=== PATIENT | male | born 1980 | race Caucasian/White ===

== ENCOUNTER → 2024-02-09 18:42 | Outpatient (REF) | payer OTHER, SELFPAY | LOC: MRI 18:42 | PROVIDERS: ATTENDING PHYSICIAN Electrodiagnostic Medicine | DX: G35 Multiple sclerosis (principal) | CPT/HCPCS: 70553; 72156; A9575 ==

== ENCOUNTER → 2024-02-10 17:58 | Outpatient (REF) | payer OTHER, SELFPAY | LOC: MRI 17:58 | PROVIDERS: ATTENDING PHYSICIAN Electrodiagnostic Medicine; FAMILY PHYSICIAN Nurse Practitioner | DX: G35 Multiple sclerosis (principal) | CPT/HCPCS: 72157; A9575 ==

== ENCOUNTER 2024-05-15 11:36 | Emergency (ER) | payer OTHER, SELFPAY ==
--- NOTE | 2024-05-15 11:40 | ED.GENMED ---
ED Provider Triage
<Lisbet Perez PA-C - Last Filed: 05/15/24 11:43>
-
Patient seen by provider in Triage?: Seen in Triage
Attestation: A medical screening examination has been initiated by a qualified medical provider. Based on the assessment performed at this time, it has been determined that an emergent medical condition may exist and the patient has been informed
that further medical evaluation and possible additional diagnostic testing may be needed.
HPI: 43yoM here with SOB. Sent over by PCP for oxygen saturation of 88%. Having 1 week of cough and congestion. Child is sick with bronchitis. Hx of MS and asthma. Smokes 1ppd.
GENERAL: Alert , in no apparent distress
EYE: No visual abnormalities.
NECK: Trachea midline
ENT: No visible abnormalities.
LUNGS: No acute respiratory distress
NEUROLOGICAL: Alert and oriented
SKIN: Skin intact. No visible changes.
MUSCULOSKELETAL: Moving extremities normally
PSYCH: Normal and appropriate interaction.
This is a medical evaluation conducted in person to initiate diagnostic evaluation and provide initial therapeutics. Please see further documentation by the treating clinician.
Oxygen saturation 96-97% in triage. Cardiac labs, EKG, COVID/flu swab, and CXR ordered.
History of Present Illness
<Lisbet Perez PA-C - Last Filed: 05/15/24 11:43>
General
Chief Complaint: Cold/Flu/URI Symptoms
Time Seen by Provider: 05/15/24 12:15
<Alma Garcia PA-C - Last Filed: 05/16/24 15:27>
General
Source: patient
Exam Limitations: none
Nursing documentation reviewed up to this point in time: agreed with
History of Present Illness
History of Present Illness:
Patient is a 43 year old male with hx MS presenting to the emergency department from primary care's office for evaluation of hypoxia. Patient reports a few weeks of persistent sore throat and congestion. He does note very mild shortness of breath,
as well. Patient was seen at primary care today where he was found to have a pulse ox of 88% on room air and sent to the emergency department for chest x-ray. Patient denies any fever, chills, headache. Patient denies any cough or chest pain.
Patient states his sore throat has been the most bothersome to him and he feels as if he is having an episode of thrush for which he has had in the past.
Of note�patient was hospitalized with COVID early March for which she has mostly resolved.
Daughter is sick at home with bronchitis.
Past History
<Lisbet Perez PA-C - Last Filed: 05/15/24 11:43>
Social History
Tobacco: Smoker
Review of Systems
<Alma Garcia PA-C - Last Filed: 05/16/24 15:27>
Review of Systems
Allergies reviewed?: Yes
All Other Systems: ROS reviewed and negative except as documented in HPI and ROS
Phy Exam
<Alma Garcia PA-C - Last Filed: 05/16/24 15:27>
Physical Exam
Physical Exam:
Vitals: Patient's vital signs are stable. Afebrile.
General: Patient is well appearing, no acute distress
Skin: Warm and dry, no rashes or lesions
Head: Normocephalic, atraumatic
Eyes: Sclera nonicteric. EOMs intact. No nystagmus.
Throat: Scattered white patches on tongue with few in posterior pharynx. Posterior pharynx mildly erythematous without any significant tonsillar edema or exudates. Uvula is midline. Protecting airway. No trismus
Neck: Normal ROM, no cervical spine tenderness, no meningismus
Cardiac: Regular rate and rhythm, no murmurs.
Pulm: No respiratory distress. Normal respiratory effort, no wheezes, rales, rhonchi heard on exam. O2 saturation 97 on room air
Abdomen: Abdomen soft. No abdominal tenderness.
Extremities: No evidence of cyanosis or edema. Great distal pulses
Neuro: AAOx3. CN II-XII intact. No focal neurologic deficits. Speech fluid.
Psychiatric: Normal affect.
Sepsis
<Alma Garcia PA-C - Last Filed: 05/16/24 15:27>
Sepsis Screening
Sepsis Assessment: Sepsis Ruled Out
Sepsis Screen
Sepsis Screen: Sepsis Ruled Out
Date: 05/16/24
Time: 15:25
<Owen Holloway DO - Last Filed: 05/15/24 14:13>
Sepsis Screen
Sepsis Screen: Sepsis Ruled Out
Date: 05/15/24
Time: 14:12
Course
<Lisbet Perez PA-C - Last Filed: 05/15/24 11:43>
Orders/Labs/Results
Orders:
Orders
05/15/24 11:42
Electrocardiogram (*1) Urgent
Reason for Study: Shortness of Breath
EKG- Treatment ONCE
CR Chest - 2 Views Urgent
Comment:
Reason For Exam: Cough, SOB
05/15/24 11:53
COVID-19 Antigen Urgent
Source: Nasal Swab
Complete Blood Count/With Diff Urgent
Comprehensive Metabolic Panel Urgent
Monotest Urgent
Comment: ADD ON
Troponin I Urgent
Influenza A+B Rapid Molecular Urgent
JAREK Source: Nasal Swab
Specimen Description:
05/15/24 13:06
Add On- LAB Urgent
Tests Added?: mono test
05/15/24 13:14
Rapid Strep Group A Urgent
JAREK Source: T
Specimen Description:
Date Specimen was Collected: 05/15/24
Time Specimen was Collected: 13:09
Comment: Add on by Alma Garcia
Throat Culture [Throat Culture, Comprehensive] Urgent
JAREK Source: Throat/Pharynx
Specimen Description:
Date Specimen was Collected: 05/15/24
Time Specimen was Collected: 13:09
05/15/24 13:27
Add On- LAB Urgent
Tests Added?: rapid strep
05/15/24 13:[address]ck [address] [CT Neck With Iv Contrast] Urgent
Comment:
Reason For Exam: Sore throat, left neck tenderness, leukocytosis
05/15/24 14:26
Nicotine [Nicoderm Transdermal] 14 mg TRANSDERM NOW STA
05/15/24 14:56
Ketorolac [Toradol] 15 mg IV NOW STA
Abnormal Lab Results
05/15/24
11:53
WBC 17.4 H 10^3/uL
(4.8-10.8)
RBC 4.25 L 10^6/uL
(4.70-6.10)
Hgb 10.8 L g/dL
(13.0-18.0)
Hct 33.9 L %
(39.0-52.0)
MCV 79.8 L fL
(80.0-94.0)
MCH 25.4 L pg
(27.0-31.0)
MCHC 31.9 L g/dL
(33.0-37.0)
RDW 14.6 H %
(11.5-14.5)
Plt Count 696 H 10^3/uL
(130-400)
Abs Immat Gran (auto) 1.0 H 10^3/uL
(0-0.05)
Absolute Neuts (auto) 13.6 H 10^3/uL
(1.4-6.5)
Absolute Monos (auto) 1.0 H 10^3/uL
(0.1-0.6)
Immature Gran % 5.7 H %
(0-0.5)
Neutrophils % 78.2 H %
(42.2-75.2)
Lymphocytes % 6.7 L %
(20.5-51.1)
Creatinine 0.5 L mg/dL
(0.7-1.3)
Glucose 118 H mg/dl
(70-99)
Albumin 3.4 L g/dl
(3.5-5.0)
05/15/24 11:53
05/15/24 11:53
Vital Signs
Initial and Last Documented VS:
Initial Vital Signs
Temp Pulse Resp BP Pulse Ox
98.3 F 72 22 119/67 97
05/15/24 11:41 05/15/24 11:41 05/15/24 11:41 05/15/24 11:41 05/15/24 11:41
Last Documented Vital Signs
Temp Pulse Resp BP Pulse Ox
98.3 F 87 18 110/97 97
05/15/24 11:41 05/15/24 16:56 05/15/24 16:56 05/15/24 16:56 05/15/24 16:56
<Alma Garcia PA-C - Last Filed: 05/16/24 15:27>
Orders/Labs/Results
Orders:
Orders
05/15/24 11:42
Electrocardiogram (*1) Urgent
Reason for Study: Shortness of Breath
EKG- Treatment ONCE
CR Chest - 2 Views Urgent
Comment:
Reason For Exam: Cough, SOB
05/15/24 11:53
COVID-19 Antigen Urgent
Source: Nasal Swab
Complete Blood Count/With Diff Urgent
Comprehensive Metabolic Panel Urgent
Monotest Urgent
Comment: ADD ON
Troponin I Urgent
Influenza A+B Rapid Molecular Urgent
JAREK Source: Nasal Swab
Specimen Description:
05/15/24 13:06
Add On- LAB Urgent
Tests Added?: mono test
05/15/24 13:14
Rapid Strep Group A Urgent
JAREK Source: T
Specimen Description:
Date Specimen was Collected: 05/15/24
Time Specimen was Collected: 13:09
Comment: Add on by Alma Garcia
Throat Culture [Throat Culture, Comprehensive] Urgent
JAREK Source: Throat/Pharynx
Specimen Description:
Date Specimen was Collected: 05/15/24
Time Specimen was Collected: 13:09
05/15/24 13:27
Add On- LAB Urgent
Tests Added?: rapid strep
05/15/24 13:[address]ck [address] [CT Neck With Iv Contrast] Urgent
Comment:
Reason For Exam: Sore throat, left neck tenderness, leukocytosis
05/15/24 14:26
Nicotine [Nicoderm Transdermal] 14 mg TRANSDERM NOW STA
05/15/24 14:56
Ketorolac [Toradol] 15 mg IV NOW STA
Abnormal Lab Results
05/15/24
11:53
WBC 17.4 H 10^3/uL
(4.8-10.8)
RBC 4.25 L 10^6/uL
(4.70-6.10)
Hgb 10.8 L g/dL
(13.0-18.0)
Hct 33.9 L %
(39.0-52.0)
MCV 79.8 L fL
(80.0-94.0)
MCH 25.4 L pg
(27.0-31.0)
MCHC 31.9 L g/dL
(33.0-37.0)
RDW 14.6 H %
(11.5-14.5)
Plt Count 696 H 10^3/uL
(130-400)
Abs Immat Gran (auto) 1.0 H 10^3/uL
(0-0.05)
Absolute Neuts (auto) 13.6 H 10^3/uL
(1.4-6.5)
Absolute Monos (auto) 1.0 H 10^3/uL
(0.1-0.6)
Immature Gran % 5.7 H %
(0-0.5)
Neutrophils % 78.2 H %
(42.2-75.2)
Lymphocytes % 6.7 L %
(20.5-51.1)
Creatinine 0.5 L mg/dL
(0.7-1.3)
Glucose 118 H mg/dl
(70-99)
Albumin 3.4 L g/dl
(3.5-5.0)
05/15/24 11:53
05/15/24 11:53
Vital Signs
Initial and Last Documented VS:
Initial Vital Signs
Temp Pulse Resp BP Pulse Ox
98.3 F 72 22 119/67 97
05/15/24 11:41 05/15/24 11:41 05/15/24 11:41 05/15/24 11:41 05/15/24 11:41
Last Documented Vital Signs
Temp Pulse Resp BP Pulse Ox
98.3 F 87 18 110/97 97
05/15/24 11:41 05/15/24 16:56 05/15/24 16:56 05/15/24 16:56 05/15/24 16:56
Dashawnlt;Owen Holloway, DO - Last Filed: 05/15/24 14:13>
Orders/Labs/Results
Orders:
Orders
05/15/24 11:42
Electrocardiogram (*1) Urgent
Reason for Study: Shortness of Breath
EKG- Treatment ONCE
CR Chest - 2 Views Urgent
Comment:
Reason For Exam: Cough, SOB
05/15/24 11:53
COVID-19 Antigen Urgent
Source: Nasal Swab
Complete Blood Count/With Diff Urgent
Comprehensive Metabolic Panel Urgent
Monotest Urgent
Comment: ADD ON
Troponin I Urgent
Influenza A+B Rapid Molecular Urgent
JAREK Source: Nasal Swab
Specimen Description:
05/15/24 13:06
Add On- LAB Urgent
Tests Added?: mono test
05/15/24 13:14
Rapid Strep Group A Urgent
JAREK Source: T
Specimen Description:
Date Specimen was Collected: 05/15/24
Time Specimen was Collected: 13:09
Comment: Add on by Alma Garcia
Throat Culture [Throat Culture, Comprehensive] Urgent
JAREK Source: Throat/Pharynx
Specimen Description:
Date Specimen was Collected: 05/15/24
Time Specimen was Collected: 13:09
05/15/24 13:27
Add On- LAB Urgent
Tests Added?: rapid strep
05/15/24 13:30
Neck w [address] [CT Neck With Iv Contrast] Urgent
Comment:
Reason For Exam: Sore throat, left neck tenderness, leukocytosis
05/15/24 14:26
Nicotine [Nicoderm Transdermal] 14 mg TRANSDERM NOW STA
05/15/24 14:56
Ketorolac [Toradol] 15 mg IV NOW STA
Abnormal Lab Results
05/15/24
11:53
WBC 17.4 H 10^3/uL
(4.8-10.8)
RBC 4.25 L 10^6/uL
(4.70-6.10)
Hgb 10.8 L g/dL
(13.0-18.0)
Hct 33.9 L %
(39.0-52.0)
MCV 79.8 L fL
(80.0-94.0)
MCH 25.4 L pg
(27.0-31.0)
MCHC 31.9 L g/dL
(33.0-37.0)
RDW 14.6 H %
(11.5-14.5)
Plt Count 696 H 10^3/uL
(130-400)
Abs Immat Gran (auto) 1.0 H 10^3/uL
(0-0.05)
Absolute Neuts (auto) 13.6 H 10^3/uL
(1.4-6.5)
Absolute Monos (auto) 1.0 H 10^3/uL
(0.1-0.6)
Immature Gran % 5.7 H %
(0-0.5)
Neutrophils % 78.2 H %
(42.2-75.2)
Lymphocytes % 6.7 L %
(20.5-51.1)
Creatinine 0.5 L mg/dL
(0.7-1.3)
Glucose 118 H mg/dl
(70-99)
Albumin 3.4 L g/dl
(3.5-5.0)
05/15/24 11:53
05/15/24 11:53
Vital Signs
Initial and Last Documented VS:
Initial Vital Signs
Temp Pulse Resp BP Pulse Ox
98.3 F 72 22 119/67 97
05/15/24 11:41 05/15/24 11:41 05/15/24 11:41 05/15/24 11:41 05/15/24 11:41
Last Documented Vital Signs
Temp Pulse Resp BP Pulse Ox
98.3 F 87 18 110/97 97
05/15/24 11:41 05/15/24 16:56 05/15/24 16:56 05/15/24 16:56 05/15/24 16:56
<Alma Garcia PA-C - Last Filed: 05/16/24 15:27>
MDM/Problems Addressed
Differential Diagnosis Includes:
Not limited to: Viral pharyngitis, oral candidiasis, mononucleosis, peritonsillar abscess, viral illness, pneumonia, etc.
MDM/Problems Addressed:
43-year-old male presenting with persistent sore throat and congestion. Patient initially sent by primary care due to hypoxia noted in office this morning although patient is in absolutely no respiratory distress here with oxygen saturation of 97%
on room air throughout duration emergency department. No chest pain or shortness of breath. No fevers, dysphagia, trismus. Vital signs are stable. Patient is afebrile on arrival to emergency department. Exam as above. Posterior pharynx mildly
erythematous without any visible peritonsillar abscess. No tonsillar exudates. Uvula is midline patient is protecting airway. There are few white lesions on tongue and scattered on posterior pharynx suggesting possible oral candidiasis. Labs
were initiated in triage which show a leukocytosis of 17.4. Chemistry unremarkable. Did obtain a chest x-ray which shows no acute findings. Viral swabs negative. [place] negative. Given mild tenderness noted to the neck with persistent sore throat
and associated leukocytosis�a CT of neck was obtained which shows no peritonsillar abscess or deep abscess of neck. Findings likely suggestive of a pharyngitis likely viral in origin. Group A strep rapid was negative. Throat culture was sent.
Patient remained very well-appearing. Suspect likely viral pharyngitis versus oral candidiasis. Given patient is afebrile with negative rapid strep will antibiotics at this time. Will send antifungal lozenges to treat possible oral candidiasis.
Feel patient is stable for discharge with primary care follow-up and close return precautions. Advised to stay well-hydrated, Motrin for pain. Patient seen with attending physician.
Chronic conditions affecting care:
N/A
Acute Exacerbation and/or Progression of Chronic Illness:
N/A
<Alma Garcia PA-C - Last Filed: 05/16/24 15:27>
*Radiology
Radiology exam reviewed: preliminary read by ED provider and radiology read reviewed
*Pulse Oximetry
Patient hypoxic: no
*Critical Care Note
Total Time (30-74mins, 75-104mins- exclusive of procedures): Not Applicable
ED Attending Note
<Lisbet Perez PA-C - Last Filed: 05/15/24 11:43>
-
Portions of this chart may have been created with voice recognition software.� Occasional wrong word or��sound alike� substitutions may have occurred due to the inherent limitations of voice recognition software.
<Owen Holloway DO - Last Filed: 05/15/24 14:13>
ED Attending Note
Patient seen and examined by attending physician: Yes
I performed a history and physical exam of patient and discussed management with resident, I reviewed resident's note and agree with documented findings and plan of care.: Yes
ED Attending Note:
I reviewed and agree with history and treatment plan by Alma Maguire. My exam revealed
Physical Exam
General: no apparent distress, not acutely ill
Neck: supple. no meningeal signs. normal posterior pharynx, left-sided cervical lymphadenopathy and tenderness
Heart: s1/s2 regular rate and rhythm, no murmur. equal radial
pulses.
HEENT: Pupils equal round reactive to light, EOMI
Lungs: no acute respiratory distress. clear bilaterally
Abdomen: normal bowel sounds. not tender. no CVAT
Neuro: alert and oriented. no focal neurological deficits cranial nerves II through XII intact
Skin: no rash
Psychiatric: well kept. interactive and cooperative
Extremities: no edema. no calf tenderness. negative homans. good distal pulses
Discharge Plan
Departure
Patient Disposition: Home (Routine Discharge)
Date of Disposition: 05/15/24
Time of Disposition: 16:47
Patient with high blood pressure during this ER visit?: No
Condition: Good
Covid-19: Negative COVID-19
Discharge Problem:
Pharyngitis, Candidiasis of mouth
Instructions: Thrush in adults, Sore Throat, Adult ED
Prescriptions:
New
clotrimazole 10 mg ana cristina
See Rx Instructions .ROUTE .COMPLEX Qty: 50 0RF
Rx Instructions:
10 mg to affected mucosal area five times per day for 10 days
No Action
hydrocodone-acetaminophen 5 MG/500 MG tablet
1 - 2 tab PO .Q4-6HPRN PRN (Reason: PAIN) Qty: 20 0RF
Referrals:
Devin Vieira CRNP [Family Provider] - Follow up in 2-3 days
Activity Restrictions/Additional Instructions:
Return to the emergency department with any fevers, chills, shortness of breath, worsening in sore throat, difficulty swallowing, neck pain, worsening current symptoms, or any other concerns
-As discussed your rapid strep test was negative today. We will contact you if the throat culture is positive.
-A prescription for lozenges resent to your pharmacy. You can use these 5 times a day for the next 10 days.
-It is important to stay well-hydrated. Take Tylenol/Motrin as needed at home for pain.
-As discussed�you must follow-up with your primary care doctor in a few days to ensure the symptoms are improving/for further evaluation
Monitor your symptoms closely and return to the emergency department any acute worsening/new symptoms or signs of worsening infection
Interventions
Interventions:
*Risk Screen - Suicide Last Done: 05/15/24 13:41
*Neglect/Abuse Screening Last Done: 05/15/24 13:41
ED- Fall Risk Assessment Last Done: 05/15/24 13:39
*ED COVID-19 Vaccine History Last Done: 05/15/24 11:41
*Nursing Disposition Last Done: 05/15/24 16:57
ED- Pulmonary Assessment Last Done: 05/15/24 13:39
Discharge Date and Time
Discharge Date/Time: 05/15/24 16:58
Print Language: [id number]
[2024-05-15 11:41] VITALS: BP 119/67
[2024-05-15 12:22] LABS: % Basophils 0.5 % (0-2); % Immature Granulocytes 5.7 % (0-0.5); % Lymphocytes 6.7 % (20.5-51.1); % Monocytes 5.9 % (1.7-9.3); % Neutrophils 78.2 % (42.2-75.2); Absolute Basophils 0.1 10^3/uL (0-0.2); Absolute Eosinophils 0.5 10^3/uL (0-0.7); Absolute Lymphocytes 1.2 10^3/uL (1.2-3.4); Absolute Neutrophils 13.6 10^3/uL (1.4-6.5); Hematocrit 33.9 % (39.0-52.0); Hemoglobin 10.8 g/dL (13.0-18.0); Mean Corp Hgb Conc. 31.9 g/dL (33.0-37.0); Mean Corpuscular Hgb 25.4 pg (27.0-31.0); Mean Corpuscular Volume 79.8 fL (80.0-94.0); Mean Platelet Volume 8.7 fL (7.4-10.4); Nucleated Red Blood Cells % 0 % (-); Platelet Count 696 10^3/uL (130-400); Red Blood Cell Count 4.25 10^6/uL (4.70-6.10); Red Cell Dist. Width 14.6 % (11.5-14.5); White Blood Cell Count 17.4 10^3/uL (4.8-10.8)
[2024-05-15 12:29] LABS: ALT (SGPT) 16 U/L (0-50); AST (SGOT) 18 U/L (17-59); Albumin 3.4 g/dl (3.5-5.0); Alkaline Phosphatase 97 U/L (38-126); Blood Urea Nitrogen 10 mg/dl (9-20); Calcium 9.3 mg/dl (8.4-10.2); Carbon Dioxide 26 mmol/L (22-30); Chloride 102 mmol/L (98-107); Glucose 118 mg/dl (70-99); Potassium 4.5 mmol/L (3.5-5.1); Sodium 139 mmol/L (135-145); Total Bilirubin 0.4 mg/dl (0.2-1.3); Total Protein 6.4 g/dl (6.3-8.2); eGFR > 60.00
[2024-05-15 12:31] LABS: COVID-19 Antigen Negative (Negative)
[2024-05-15 12:41] LABS: Troponin I < 0.012 ng/ml
[2024-05-15 14:00] VITALS: BP 118/73
[2024-05-15] MEDS: NICODERM TRANSDERMAL 14 MG TRANSDERM (14:29)
[2024-05-15 14:54] LABS: Monotest Negative (Negative)
[2024-05-15 15:00] VITALS: BP 107/64
[2024-05-15] MEDS: TORADOL 15 MG IV (15:44)
[2024-05-15 16:56] VITALS: BP 110/97
== END 2024-05-15 16:58 | disposition home or self-care (01) ==
LOC: EMR 11:36
PROVIDERS: Physician Assistant; EMERGENCY PHYSICIAN Emergency Medicine; FAMILY PHYSICIAN Nurse Practitioner Family
DX: J02.9 Acute pharyngitis, unspecified (principal); B37.0 Candidal stomatitis; G35 Multiple sclerosis; F17.210 Nicotine dependence, cigarettes, uncomplicated
CPT/HCPCS: 96374; 99284; 70491; 71046; 80053; 84484; 85025; 86308; 87070; 87502; 87811; 87880; 93005; Q9967